=== PATIENT | male | born 1995 | race African-American/Black ===

== ENCOUNTER 2017-02-19 15:12 | Emergency (ER) | payer OTHER ==
[2017-02-19] MEDS ORDERED: Lidocaine/Epineph/Tetraca SOL* (LET solution) 4 ML BTL TOPICAL ONE ×2 (16:11→16:21)
--- NOTE | 2017-02-19 16:17 | UC ---
Rectal Pain HPI - HPI Summary HPI Summary: 2 DAYS OF ANAL PAIN. HAS H/O HEMORRHOIDS. WAS STRAINING TO HAVE A BM 2 DAYS AGO AND HAD SUDDEN PAIN THAT HAS PERSISTED. IS USING TOPICAL HYDROCORTISONE WITH NO RELIEF. CAN NOT SIT DOWN. HAS NOT SLEPT IN 2 DAYS. DENIES ANY INSERTIVE ANAL PENETRATION. ALSO REPORTS SOME DYSURIA SINCE YESTERDAY. NO FEVER. NO NAUSEA. DENIES ANY SEXUAL ACTIVITY. - History Of Current Complaint Chief Complaint: UCGeneralIllness Stated Complaint: PERSONAL Time Seen by Provider: 02/19/17 15:59 Hx Obtained From: Patient Onset/Duration: Sudden Onset, Lasting Days, Still Present Timing: Constant Severity Initially: Moderate Severity Currently: Severe Pain Intensity: 8 Pain Scale Used: 0-10 Numeric Location Of Pain: Anal Character: Sharp Aggravating Factor(s): Bowel Movement, Sitting, Walking Alleviating Factor(s): Nothing Associated Signs And Symptoms: Positive: External Hemorrhoid, Constipation Related History: Hemorrhoids - Allergies/Home Medications Allergies/Adverse Reactions: Allergies Allergy/AdvReac Type Severity Reaction Status Date / Time No Known Allergies Allergy Verified 02/19/17 15:17 Home Medications: Home Medications NK [No Home Medications Reported] 02/19/17 [History Confirmed 02/19/17] PMH/Surg Hx/FS Hx/Imm Hx Previously Healthy: Yes - Surgical History Surgical History: None - Family History Known Family History: Positive: Hypertension, Diabetes - Social History Alcohol Use: Rare Substance Use Type: None Smoking Status (MU): Never Smoked Tobacco Review of Systems Constitutional: Negative Skin: Other - HEMORRHOIDS Respiratory: Negative Cardiovascular: Negative Gastrointestinal: Negative Genitourinary: Dysuria All Other Systems Reviewed And Are Negative: Yes Physical Exam Triage Information Reviewed: Yes Appearance: Well-Appearing, Well-Nourished, Pain Distress - MODERATE Vital Signs: Initial Vital Signs Temp 98 F 02/19/17 15:19 Pulse 92 02/19/17 15:19 Resp 20 02/19/17 15:19 Pulse Ox 100 02/19/17 15:19 Vital Signs Reviewed: Yes Eyes: Positive: Conjunctiva Clear ENT: Positive: Hearing grossly normal Neck: Positive: Supple Respiratory: Positive: No respiratory distress, No accessory muscle use Cardiovascular: Positive: Pulses Normal Abdomen Description: Positive: Soft Musculoskeletal: Positive: No Edema Neurological: Positive: Alert Psychological: Positive: Age Appropriate Behavior UC Physical Exam Vital Signs On Initial Exam: Initial Vitals Temp Pulse Resp Pulse Ox 98 F 92 20 100 02/19/17 15:19 02/19/17 15:19 02/19/17 15:19 02/19/17 15:19 - Rectal Exam Rectal Exam: Hemorrhoids - LARGE PROTRUDING, TENDER EXTERNAL HEMORRHOIDS Rectal Pain Course/Dx - Course Course Of Treatment: TOPICAL LET APPLIED. SPOKE TO DR. RAO FROM [facility]. ADVISED ER VS. OFFICE F/U ON Wednesday. PT STATES HE DOESN'T THINK HE CAN MAKE IT UNTIL WEDNESDAY. WILL GO TO ER. PT UNABLE TO PROVIDE URINE SAMPLE. - Differential Dx/Diagnosis Provider Diagnoses: PAINFUL LARGE EXTERNAL HEMORRHOIDS - Physician Notifications Discussed Patient Care With: Tomi Rao - ADVISED ER VS. OFFICE F/U ON Wednesday Time Discussed With Above Provider: 16:20 Discharge - Discharge Plan Condition: Stable Disposition: OTHER Discharge Disposition Comment: TO [facility] BY PRIVATE CAR Patient Education Materials: Hemorrhoids (ED) Referrals: No Primary Care Phys,NOPCP [Primary Care Provider] - Additional Instructions: TOPICAL LET APPLIED FOR SYMPTOMATIC RELIEF. GO DIRECTLY TO THE ER FROM HERE FOR FURTHER EVALUATION. DR. RAO ([facility]) CONTACTED AND IS AWARE OF YOUR CASE.
[2017-02-19] MEDS ORDERED: Lidocaine/Epineph/Tetraca SOL* (LET solution) 4 ML BTL ONE (16:23)
== END 2017-02-19 16:40 ==
LOC: UCEAST 15:12
DX: K64.4 Residual hemorrhoidal skin tags (principal); K59.00 Constipation, unspecified; R30.0 Dysuria
CPT/HCPCS: 99202; G0463

== ENCOUNTER 2017-02-19 17:18 | Inpatient (IN) | payer OTHER ==
[2017-02-19] MEDS ORDERED: NS 0.9% 1000 ML* 1,000 ML IV ONE (18:15)
[2017-02-19] MEDS ORDERED: HYDROmorphone INJ* 1 MG/ML CARPUJECT SYRINGE IV SLOW PU ONE ×2 (18:15→19:58)
[2017-02-19] MEDS ORDERED: Ondansetron INJ* 2 MG/ML VIAL IV ONE (18:15)
[2017-02-19 19:05] LABS: Hematocrit 43 % (42-52); Mean Corpuscular HGB Conc 33 g/dl (31-36); Mean Corpuscular Hemoglobin 26 pg (27-31); Mean Corpuscular Volume 81 fL (80-94); Mean Platelet Volume 9 um3 (7.4-10.4); Red Blood Count 5.29 10^6/ul (4.0-5.4); Red Cell Distribution Width 15 % (10.5-15); White Blood Count 5.6 10^3/ul (3.5-10.8)
[2017-02-19 19:17] LABS: ALT 9 U/L (7-52); AST 19 U/L (13-39); Albumin 4.9 g/dL (3.2-5.2); Alkaline Phosphatase 61 U/L (34-104); Anion Gap 9 mmol/L (2-11); BUN/Creatinine Ratio 9.6 (8-20); Blood Urea Nitrogen 9 mg/dL (6-24); C Reactive Protein < 1.00 mg/L (< 5.00); CO2 Carbon Dioxide 28 mmol/L (22-32); Calcium 10.4 mg/dL (8.6-10.3); Chloride 102 mmol/L (101-111); EGFR African American 130.3 (>60); EGFR Non-African American 101.3 (>60); Globulin 3.8 g/dL (2-4); Glucose 95 mg/dL (70-100); Potassium 3.7 mmol/L (3.5-5.0); Sodium 139 mmol/L (133-145); Total Protein 8.7 g/dL (6.4-8.9)
[2017-02-19] MEDS ORDERED: HYDROmorphone INJ* 1 MG/ML CARPUJECT SYRINGE IV ONE (19:23)
[2017-02-19 19:53] LABS: Urine Bilirubin Negative (Negative); Urine Glucose Negative (Negative); Urine Nitrite Negative (Negative)
[2017-02-19] MEDS ORDERED: LORazepam INJ* 2 MG/ML 1 ML VIAL IV PUSH ONE (19:57)
--- NOTE | 2017-02-19 21:20 | ED ---
Jon Albert Thomas, scribed for Adriana Weems MD on 02/19/17 at 1803 . GI/ HPI - HPI Summary HPI Summary: The patient is a 21 y/o M referred from E and c/o rectal pain d/t hemorrhoids. This pain began two days ago and is constant. It is worsened by palpation and movement. It is alleviated by nothing. He has had a prior episode of hemorrhoids, but this resolved in a day spontaneously. He is accompanied by a friend din the examination room. He has no other complaints. - History of Current Complaint Chief Complaint: EDRectalPain Time Seen by Provider: 02/19/17 17:49 Stated Complaint: RECTAL PAIN Hx Obtained From: Patient, Family/Casualty Claim Adjuster - friend is present Onset/Duration: Started Days Ago - onset two days ago Timing: Constant Severity: Severe Pain Intensity: 8 Location of Pain: Rectal Associated Signs and Symptoms: Positive: Negative Aggravating Factor(s): Straining, Palpation, Movement Alleviating Factor(s): Nothing - Allergy/Home Medications Allergies/Adverse Reactions: Allergies Allergy/AdvReac Type Severity Reaction Status Date / Time No Known Allergies Allergy Verified 02/19/17 15:17 PMH/Surg Hx/FS Hx/Imm Hx Previously Healthy: No Endocrine/Hematology History: Denies: Hx Diabetes Cardiovascular History: Denies: Hx Hypertension, Hx Myocardial Infarction GI History: Reports: Other GI Disorders - Hx hemorrhoids - Surgical History Surgery Procedure, Year, and Place: None Infectious Disease History: No Infectious Disease History: Denies: Hx Clostridium Difficile, Hx Hepatitis, Hx Human Immunodeficiency Virus (HIV), Hx of Known/Suspected MRSA, Hx Shingles, Hx Tuberculosis, Hx Known/ Suspected VRE, Hx Known/Suspected VRSA, History Other Infectious Disease, Traveled Outside the [place] in Last 30 Days - Family History Known Family History: Positive: Hypertension, Diabetes - Social History Occupation: Student - at [employer] Lives: Dormitory/Roommates Alcohol Use: None Substance Use Type: Reports: None Smoking Status (MU): Never Smoked Tobacco Review of Systems Negative: Fever Positive: Other - Rectal pain onset two days ago All Other Systems Reviewed And Are Negative: Yes Physical Exam Triage Information Reviewed: Yes Vital Signs On Initial Exam: Initial Vitals Temp Pulse Resp BP Pulse Ox 98.9 F 65 20 122/84 97 02/19/17 17:22 02/19/17 17:22 02/19/17 17:22 02/19/17 17:22 02/19/17 17:22 Vital Signs Reviewed: Yes Appearance: Positive: Well-Appearing, No Pain Distress Skin: Positive: Warm, Skin Color Reflects Adequate Perfusion, Dry Eyes: Positive: EOMI, RON ENT: Positive: Pharynx normal, TMs normal Neck: Positive: Supple, Nontender Respiratory/Lung Sounds: Positive: Clear to Auscultation, Breath Sounds Present. Negative: Rales, Rhonchi, Wheezes Cardiovascular: Positive: RRR, Other - No gallop. Negative: Murmur, Rub Abdomen Description: Positive: Nontender, Soft, Other: - No rebound. Negative: Distended, Guarding Bowel Sounds: Positive: Present Male Genital Exam: Positive: other - He has large hemorrhoids. Musculoskeletal: Positive: Strength/ROM Intact. Negative: Edema Left, Edema Right Neurological: Positive: Sensory/Motor Intact, Alert, Oriented to Person Place, Time, CN Intact II-III - [place] Coma Scale Coma Scale Total: 15 Diagnostics - Vital Signs Vital Signs Temp Pulse Resp BP Pulse Ox 02/19/17 17:22 98.9 F 65 20 122/84 97 - Laboratory Lab Results: Lab Results 02/19/17 02/19/17 02/19/17 Range/Units 18:35 18:35 19:30 WBC 5.6 (3.5-10.8) 10^3/ul RBC 5.29 (4.0-5.4) 10^6/ul Hgb 14.0 (14.0-18.0) g/dl Hct 43 (42-52) % MCV 81 (80-94) fL MCH 26 L (27-31) pg MCHC 33 (31-36) g/dl RDW 15 (10.5-15) % Plt Count 263 (150-450) 10^3/ul MPV 9 (7.4-10.4) um3 Neut % (Auto) 59.3 (38-83) % Lymph % (Auto) 33.3 (25-47) % Crawford % (Auto) 6.3 (1-9) % Eos % (Auto) 0.5 (0-6) % Baso % (Auto) 0.6 (0-2) % Absolute Neuts (auto) 3.3 (1.5-7.7) 10^3/ul Absolute Lymphs (auto) 1.8 (1.0-4.8) 10^3/ul Absolute Monos (auto) 0.3 (0-0.8) 10^3/ul Absolute Eos (auto) 0 (0-0.6) 10^3/ul Absolute Basos (auto) 0 (0-0.2) 10^3/ul Absolute Nucleated RBC 0.01 10^3/ul Nucleated RBC % 0.1 Sodium 139 (133-145) mmol/L Potassium 3.7 (3.5-5.0) mmol/L Chloride 102 (101-111) mmol/L Carbon Dioxide 28 (22-32) mmol/L Anion Gap 9 (2-11) mmol/L BUN 9 (6-24) mg/dL Creatinine 0.94 (0.67-1.17) mg/dL Est GFR ( Amer) 130.3 (>60) Est GFR (Non-Af Amer) 101.3 (>60) BUN/Creatinine Ratio 9.6 (8-20) Glucose 95 (70-100) mg/dL Calcium 10.4 H (8.6-10.3) mg/dL Total Bilirubin 0.60 (0.2-1.0) mg/dL AST 19 (13-39) U/L ALT 9 (7-52) U/L Alkaline Phosphatase 61 (34-104) U/L C-Reactive Protein < 1.00 (< 5.00) mg/L Total Protein 8.7 (6.4-8.9) g/dL Albumin 4.9 (3.2-5.2) g/dL Globulin 3.8 (2-4) g/dL Albumin/Globulin Ratio 1.3 (1-3) Urine Color Straw Urine Appearance Clear Urine pH 6.0 (5-9) Ur Specific [place] 1.006 L (1.010-1.030) Urine Protein Negative (Negative) Urine Ketones 1+ H (Negative) Urine Blood Negative (Negative) Urine Nitrate Negative (Negative) Urine Bilirubin Negative (Negative) Urine Urobilinogen Positive H (Negative) Ur Leukocyte Esterase Negative (Negative) Urine Glucose Negative (Negative) Result Diagrams: 02/19/17 18:35 02/19/17 18:35 Lab Statement: Any lab studies that have been ordered have been reviewed, and results considered in the medical decision making process. Re-Evaluation - Re-Evaluation First Eval Re-Evaluation Time: 21:10 Change: Unchanged Comment: After 1.5 mg of Dilaudid and 1mg of Ativan, I was able to do a rectal exam. The patient has three thrombosed external hemorrhoids at 12, 6, and 4. They are quite large. GIGU Course/Dx - Course Course Of Treatment: 21 yo male with 3 very large likely thrombosed hemorrhoids , it was quite difficult to get his pain managed enough for a rectal to be done this was accomplished after 1.5mg IV dilaudid and 1mg of iv ativan. On rectal there was no internal fluctuance or what appeared to be a prolapse but 3 hemorhoids at 12, 4 and 6 oclock. Pt does not have any med problems and if referred to his urgent care notes has not had any rectal trauma or intercourse. He also does not have a history of sickle cell anemia. The case was discussed with Dr. Rao who agreed to admit the pt to his service and will followup with him in the am - Diagnoses Provider Diagnoses: Thrombosed external hemorrhoid - Physician Notifications Discussed Care Of Patient With: Tomi Rao Time Discussed With Above Provider: 19:57 Instructed by Provider To: Other - I consulted with Dr. Rao, surgery, regarding patient care. I consulted again with him at 21:10. Discharge - Discharge Plan Condition: Stable Disposition: ADMITTED TO [facility] The documentation as recorded by the Jon whitten Thomas accurately reflects the service I personally performed and the decisions made by me, Adriana Weems MD.
[2017-02-19] MEDS ORDERED: Morphine INJ* 4 MG/ML 1 ML CARPUJECT IV PRN (21:56)
[2017-02-19] MEDS ORDERED: Docusate CAP* 100 MG PO ONE (21:56)
--- NOTE | 2017-02-19 23:20 | HP ---
[facility] [employer] HISTORY AND PHYSICAL: DATE OF ADMISSION: 02/19/17 LOCATION: The patient seen in the emergency room. HISTORY OF PRESENT ILLNESS: I was contacted by the emergency room to evaluate Mr. Arreola, a 21-yea r-old gentleman, who presented to [facility] earlier today with severe perianal pain. I was co ntacted at approximately 4:30 today regarding this patient with recommendation of sitz bath and pain control and transfer to emergency room if the patient could not tolerate the pain. This has what o ccurred and he presents for evaluation. In the emergency room, the patient had an IV placed, did un dergo a proper examination, that was unable to be performed at [facility], with the ER physicia n with medications on board, and was noted to have enlarged swollen external hemorrhoids and possibl e internal hemorrhoid component that was not able to be reduced. The patient's pain is improved wit h narcotics and with rest. He is now coming out of the benzo as I ask him questions. The patient describes 2 days of severe perianal pain, started with bowel movement that he rushed the other day when he felt someone was waiting for the bathroom. This caused a severe pain and swelling . The patient describes having similar symptoms in the past, but not nearly as bad, and these were controlled with topical hemorrhoidal cream. This is what he used and continued to have persistent p ain and presents. His last bowel movement was yesterday evening and it should be noted that it was also severely painf ul. PAST MEDICAL HISTORY: None. PAST SURGICAL HISTORY: None. HOSPITALIZATIONS: No hospitalizations. MEDICATIONS: He is on no medications. ALLERGIES: He has no known drug allergies. FAMILY HISTORY: Mother suffers with anemia, otherwise alive and well. SOCIAL HISTORY: He is from the [place]. He has been up here 6 weeks for school studying exercise the [employer]. He does like to work out, but more into cross-training and lifting heavy weights and again de scribes the onset of pain when he was on the toilet bowl. REVIEW OF SYSTEMS: No fevers. No chills. No nausea. No vomiting. Some dysuria with feeling of n ot emptying his bladder. No endocrine disorders. The patient does not receive anal intercourse. H e has no bleeding or clotting disorders. PHYSICAL EXAMINATION GENERAL: He is alert and oriented x3, in no apparent distress, lying on stretcher on his right side . VITAL SIGNS: He is afebrile. Vital signs are stable. Blood pressure 136/93, heart rate 74. LUNGS: His lungs are clear. ABDOMEN: His abdomen is soft, nondistended, nontender. No suprapubic pain. RECTAL EXAM: The patient is exquisitely tender. He has enlarged external hemorrhoids, swollen hemo rrhoidal tissue, appearingly external hemorrhoids that show mild excoriation at the posterior portio n that appears thrombosed. Lateral hemorrhoidal tissue is softer and pink. I do not see any protru ding hemorrhoids. The patient is exquisitely tender and I cannot do a rectal exam at this point. It should be noted that the ER doctor was able to do digital rectal exam and no hemorrhoids reduced sp ontaneously and all lesions appeared external according to her report. 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 I will give him IV fluids and pain control, sitz bath, and take him to the operating r oom tomorrow for exam under anesthesia and possible hemorrhoidectomy. I outlined this to the patien t who did recently receive Ativan and we will hold off on this intervention until the morning. The patient understands. He is with one of the staff from the college and I have described this to him as well, who will reach out to Mr. Arreola's mother. [id number]/[facility] #: [id number]
[2017-02-20] MEDS: HYDROmorphone INJ* 1 MG/ML CARPUJECT SYRINGE IV PRN ×4 (00:07→09:49)
[2017-02-20] MEDS ORDERED: Influenza VAC *QUAD* 2017-18* 0.5 ML SYRINGE IM ONE (09:00)
--- NOTE | 2017-02-20 09:57 | PN ---
Progress Note - Progress Note Date of Service: 02/20/17 SOAP: Subjective: He is still having anal pain. Urinating without problem No rectal bleeding. Objective: Temp Pulse Resp BP Pulse Ox 99.3 F 65 18 135/69 99 02/20/17 07:52 02/20/17 07:52 02/20/17 08:53 02/20/17 07:52 02/20/17 07:52 Intake & Output 02/18/17 02/19/17 02/20/17 02/21/17 06:59 06:59 06:59 06:59 Intake Total 1000 Output Total 200 0 Balance 800 0 Weight 140 lb Intake: IV Fluids 1000 Oral 0 Output: Urine 200 0 Other: Estimated Void Medium # Voids 1 PEX: Comfortable Awake and alert Lungs are clear Abd is soft and non-tender Emelia-anal area with swollen, edematous external hemorrhoidal tissue, three rosettes with posterior area appearing thrombosed. No prolapsed internal hemorrhoid tissue, no ulceration, no bleeding. No redness Assessment: Probable thrombosed external hemorrhoid, less likely internal hemorrhoid prolapse. Plan: Anorectal exam under anesthesia with possible evacuation of clot from thrombosed hemorrhoid, possible external hemorrhoidectomy, possible internal hemorrhoidectomy. Procedure discussed with patient-risks of, but not limited to, bleeding, infection, abscess, prolonged pain, incontinence, sphincter muscle injury, prolonged recovery time and hospitalization that may be prolonged were discussed with him. Will plan for OR today.
[2017-02-20] MEDS ORDERED: Midazolam* 1 MG/ML 2 ML VIAL (2 MG) ONE (11:36)
[2017-02-20] MEDS ORDERED: fentaNYL* 50 MCG/ML 2 ML VIAL (100 MCG VIAL) ONE ×2 (11:36→12:18)
[2017-02-20] MEDS ORDERED: Rocuronium* 10 MG/ML VIAL ONE (11:55)
[2017-02-20] MEDS ORDERED: Lidocaine 1.5% EPI 1:200,000* 30 ML SDV ONE (12:29)
[2017-02-20] MEDS ORDERED: PROCHLORPERAZINE INJ 5 MG/ML 2 ML VIAL IV PRN (12:38)
[2017-02-20] MEDS ORDERED: DiMENhydriNATE IV* 50 MG/ML VIAL IV PUSH PRN (12:38)
[2017-02-20] MEDS ORDERED: fentaNYL* 50 MCG/ML 2 ML VIAL (100 MCG VIAL) IV PRN (12:38)
[2017-02-20] MEDS ORDERED: Acetaminophen TAB* 325 MG PO PRN (12:38)
[2017-02-20] MEDS ORDERED: Lidocaine 2% JELLY* 6 ML JELLY TOPICAL ONE (12:58)
[2017-02-20] MEDS ORDERED: HYDROmorphone INJ* 1 MG/ML CARPUJECT SYRINGE IV SLOW PU PRN (13:14)
--- NOTE | 2017-02-20 13:14 | SURGPN ---
Brief Operative Note - Surgery Procedures: OPERATIVE REPORT PRE-OP: Thrombosed external hemorrhoids POST-OP: Same PROCEDURE: Anorectal exam under anesthesia and external hemorrhoidectomy of two external hemorrhoids. SURGEON: MD Crystal ANESTHESIA: General with local Dr. Davis ASST: none IVF: min EBL: min SPECIMEN: External hemorrhoid tissue DRAIN: none WOUND CLASS: 4 COMPLICATIONS: none TO PACU
[2017-02-20] MEDS ORDERED: NS 0.9% 1000 ML* 1,000 ML IV SCH (13:15)
[2017-02-20] MEDS: oxyCODONE/Acetamin 5/325 MG* TAB PO PRN ×2 (16:08→20:21)
[2017-02-20] MEDS: Ketorolac INJ* 30 MG/ML 1 ML VIAL IV PUSH PRN (16:10)
--- NOTE | 2017-02-20 19:48 | OP ---
CC: [facility]; [facility] OPERATIVE REPORT: DATE OF OPERATION: 02/20/17 - Inpatient, room 339-01 DATE OF : 89 SURGEON: Jesus Rojas MD. ANESTHESIA: General with local. ANESTHESIOLOGIST: Dr. Davis. PRE-OP DIAGNOSIS: Thrombosed external hemorrhoids, perianal pain. POST-OP DIAGNOSES: Thrombosed external hemorrhoids, perianal pain. OPERATIVE PROCEDURE: Anorectal exam under anesthesia with external hemorrhoidectomy of 2 thrombosed external hemorrhoids. ESTIMATED BLOOD LOSS: Minimal. SPECIMEN: Hemorrhoidal tissue. DRAINS: None. COMPLICATIONS: None. WOUND CLASSIFICATION: 4. IV FLUIDS: Minimal. URINE OUTPUT: Not recorded. 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 He has had problems with hemorrhoids in the past. He has noted no bleeding and in the emergency room he was noted to have, what was felt to be, thrombosed external hemorrhoids with a significant edema. It was difficult to perform a complete examination due to the discomfort and he was subsequently admitted last night and now have plans to be taken to the operating room for exam under anesthesia with probable external hemorrhoidectomy and evacuation of clot, and also to rule out any internal hemorrhoidal disease. The procedure was discussed with the patient; the risk of, but not limited to, bleeding, infection, incontinence, abscess, discomfort, prolonged recovery, and hospital stays were all explained, in addition to the risk of anesthesia. DESCRIPTION OF PROCEDURE: Written informed consent was obtained, the patient was taken to the operating room. General anesthesia was administered. He was placed in a prone aissatou knife position. Appropriate warming device and sequential compression devices were placed on the lower extremities. The perianal and buttock area were prepped and draped in usual sterile fashion. Time-out verification was completed. Initially 1% Marcaine with epinephrine was infiltrated to perform a perianal block. Digital rectal exam showed no evidence of blood or mass. On careful evaluation, using appropriate retractors, revealed no significant internal hemorrhoidal disease and what was seen was 2 external hemorrhoids that were mainly anterior, which had thrombosed and were edematous. There were also 2 appearing external hemorrhoids more posteriorly; however, these appeared to be edematous, without evidence of significant thrombosis. With this finding and due to the patient's discomfort, I made a decision to proceed with external hemorrhoidectomy of the 2 thrombosed hemorrhoids that were mainly anteriorly. These were done with cautery. An elliptical incision was made in the hemorrhoidal tissue and clot was evacuated and the perianal skin was closed with a running 3-0 Polysorb suture at both positions. There was a skin bridge between both hemorrhoids. The remaining 2 hemorrhoids easily compressed with some pressure and did not have a clot that I felt required evacuation. Hemostasis was secured. Lidocaine gel was placed in the anal canal. The dry dressing was placed and the patient was taken to the recovery room in stable condition. [id number]/[facility] #: [id number] ANTOINETTE
[2017-02-21] MEDS: oxyCODONE/Acetamin 5/325 MG* TAB PO PRN ×4 (03:46→21:18)
[2017-02-21] MEDS: Ketorolac INJ* 30 MG/ML 1 ML VIAL IV PUSH PRN ×2 (06:21→13:25)
[2017-02-21] MEDS ORDERED: Influenza VAC *QUAD* 2017-18* 0.5 ML SYRINGE IM ONE (09:00)
[2017-02-21] MEDS ORDERED: Docusate CAP* 100 MG PO PRN (09:16)
--- NOTE | 2017-02-21 09:23 | PN ---
Progress Note - Progress Note Date of Service: 02/21/17 SOAP: Subjective: Still with significant anal pain He is refusing sitz bathes Tolerating regular diet Objective: Temp Pulse Resp BP Pulse Ox 98.4 F 69 16 109/63 94 02/21/17 07:28 02/21/17 07:28 02/21/17 08:45 02/21/17 07:28 02/21/17 07:28 Intake & Output 02/19/17 02/20/17 02/21/17 02/22/17 06:59 06:59 06:59 06:59 Intake Total 1000 5491 Output Total 200 1205 Balance 800 4286 Weight 140 lb 140 lb Intake: IV Fluids 1000 2291 LR 2291 Oral 0 3200 Output: Urine 200 1205 Other: Estimated Void Medium Medium # Voids 1 2 PEX: Comfortable Lungs are clear Abdomen is soft and non-tender Emelia-anal area with small amount of bloody discharge. Remaining external hemorrhoids are edematous and soft without evidence of thrombosis. Digital exam not performed. Assessment: Thrombosed external hemorrhoids s/p external hemorrhoidectomy. There are still several edematous, non-thrombosed external hemorrhoids remaining No significant internal hemorrhoids noted at OR He is still having significant pain and requiring IV analgesia He is refusing sitz baths Plan: Encourage sitz bath Analgesia Stool softeners Increase activity Due to pain and his living arrangements at college I do not feel he is ready for discharge today.
[2017-02-22] MEDS: oxyCODONE/Acetamin 5/325 MG* TAB PO PRN ×5 (02:21→19:55)
--- NOTE | 2017-02-22 13:10 | PN ---
Progress Note - Progress Note Date of Service: 02/22/17 SOAP: Subjective: He is still having significant anal pain-taking oral medicines, IV saline lock out yesterday. He would like some IV analgesia He did take a sitz bath once yesterday. He is tolerating po and is urinating without problem but no BM or flatus Objective: Temp Pulse Resp BP Pulse Ox 98.6 F 73 18 127/70 99 02/22/17 11:16 02/22/17 11:16 02/22/17 11:16 02/22/17 11:16 02/22/17 11:16 Intake & Output 02/20/17 02/21/17 02/22/17 02/23/17 06:59 06:59 06:59 06:59 Intake Total 1000 5491 1398 120 Output Total 200 1205 Balance 800 4286 1398 120 Weight 140 lb 140 lb Intake: IV Fluids 1000 2291 LR 2291 Oral 0 3200 1398 120 Output: Urine 200 1205 Other: Estimated Void Medium Medium Medium # Voids 1 2 1 PEX: Lying in bed with blanket over head-lights out in room Lungs are clear Abd is soft and non-tender Anal area without redness or odor-posterior external hemorrhoids remain edematous but do not appear thrombosed. Suture line at site of hemorrhoidectomy intact without purulence or drainage. Assessment: POD# 2 s/p external hemorrhoidectomy- He continues with severe persistent pain He does not feel that he is ready for discharge-he lives in a dorm room and he says he will have no privacy and is pain will be too great. Plan: Will supplement oral analgesia with IV meds Regular diet Sitz bathes Plan d/c tomorrow 02/23.
[2017-02-23] MEDS: oxyCODONE/Acetamin 5/325 MG* TAB PO PRN ×2 (03:09→08:46)
--- NOTE | 2017-02-23 10:15 | PN ---
Progress Note - Progress Note Date of Service: 02/23/17 SOAP: Subjective: Feeling better, no new complaints. Patient seen and examined at bedside. Moving his bowels, denies constipation. Ready to go home. Objective: Awake and alert, comfortable in bed, in NAD. VSS, afebrile Abdomen soft, non-tender and non-distended. Rectal exam deferred until seen in office next week. Assessment: A 21 y/o male, POD#3, s/p external hemorrhoidectomy, doing well. Plan: Plan to d/c to home today Oral analgesics, sitz bath and stool softners. F/U in office next week.
[2017-02-23 11:57] VITALS: BP 128/77
--- NOTE | 2017-02-23 19:51 | DS ---
Amended report to enter cosigning doctor. DISCHARGE SUMMARY: DATE OF ADMISSION: 02/19/17. DATE OF DISCHARGE: 02/23/17. PATIENT OF: Dr. Tomi Rao* (dictated by GATO Arizmendi). ADMISSION DIAGNOSIS: Thrombosed hemorrhoids. DISCHARGE DIAGNOSIS: Thrombosed hemorrhoids. ADMITTING PHYSICIAN: Tomi Rao MD CONSULTATIONS: None. PROCEDURES: External hemorrhoidectomy by Dr. Rojas on 02/20/17. BRIEF MEDICAL HISTORY: Luis Antonio is a pleasant 21-year-old gentleman who is in [facility] and lives in a dorm. Apparently, the patient presented to the [facility] with worsening perianal pain that started two days prior to his admission. He described it as a severe pain that started with the bowel movement, but denies any significant rectal bleeding. He described similar symptoms in the past due to known history of hemorrhoids. The patient tried topical hemorrhoidal cream that provided some relief; however , his pain has gotten worse and he presented to the [facility]. The patient was advised to go to the emergency room and he was seen there by Dr. Rao and his rectal exam revealed significant pain as well as evidence of large thrombosed external hemorrhoid for which he was admitted for observation. HOSPITAL COURSE: The patient was admitted on 02/19/17 for observation status and pain management. He tried sitz bath and analgesics; however, his pain was relieved for a short period of time. He was examined on the following day by Dr. Rojas and was found to have persistent thrombosed external hemorrhoids for which he was taken to the operating room later that day for surgery. He had an external hemorrhoidectomy and returned back to the surgical floor for observation. He experienced significant amount of pain that was relieved usually with Dilaudid or oral Percocet and he started doing sitz bath on the first day postoperatively. He was ambulatory out of bed; however, he still have persistent pain and was unable to move his bowel. The patient was kept in admission status for the next couple of days for pain control and analgesics. He continued to improve on a daily basis with less perianal pain. His exam in the postoperative period revealed no evidence of bleeding or discharge from the hemorrhoidectomy site. He continued to improve and will be discharged home today 02/23/17 on oral analgesics, stool softener and to do sitz bath at home twice a day as tolerated. DISCHARGE MEDICATIONS: Include: 1. Colace 100 mg one tab twice daily. 2. Percocet 5/325 one to two tablets q. 6 hours as needed for pain. PROBLEM LIST: Thrombosed external hemorrhoids, status post external hemorrhoidectomy on 02/20/17. GATO ARIZMENDI [id number]/[facility] #: [id number] MTDReina
== END 2017-02-23 12:00 | disposition home or self-care (01) | DRG 226 ==
LOC: ED 17:18 → SSU 21:54 → OBSVTOIN 02-21 09:00
PROVIDERS: ADMIT Surgery; ATTEND Surgery
PROC: 065Y0ZC Destruction of Hemorrhoidal Plexus, Open Approach (ICD-10-PCS; principal; 2017-02-20 10:00)
DX: K64.5 Perianal venous thrombosis (principal)
CPT/HCPCS: 36415; 80053; 81003; 85025; 86140; 88304; 90686; 94760; A9270-GY; G0378; J1170; J1885; J2060; J2250; J2405; J3010